=== PATIENT | male | born 1970 | race African-American/Black ===

== ENCOUNTER → 2021-02-09 | Outpatient (CLI) | payer OTHER ==
[~2021-02-09] MED LIST: ASPI-886 PO; CARV25TA2 PO; CRESTOR40 MG PO; EMPA25TA PO; HYDR100T24 PO; RAMI10CA53 PO; SPIR25TA5 PO
== END ==
LOC: LAB 09:45
PROVIDERS: ATTEND Internal Medicine Gastroenterology
DX: Z01.812 Encounter for preprocedural laboratory examination (principal); Z12.11 Encounter for screening for malignant neoplasm of colon; Z20.822 Contact with and (suspected) exposure to COVID-19
CPT/HCPCS: U0003

== ENCOUNTER → 2021-02-10 | Day surgery (SDC) | payer OTHER ==
[~2021-02-10] MED LIST changes: +IV RINGERS,LACTATED 1000ML 1,000 ML IV SCH; +LIDOCAINE 2% PF 5 ML VIAL. ONE; +PROPOFOL 10 MG/ML (20ML) VIAL. IV ONE
[2021-02-10 13:12] VITALS: BP 109/65
--- NOTE | 2021-02-10 19:13 | CONS ---
DATE OF CONSULTATION: 02/10/2021 REFERRING PHYSICIAN: Jae Perkins. REASON FOR CONSULTATION: Colorectal screening. HISTORY OF PRESENT ILLNESS: This is a 51-year-old male whose past medical history significant for diabetes, hypertension, coronary atherosclerosis, is seen for screening colon exam. Bowel habits are regular without diarrhea or constipation. Family history is negative for colon cancer. There has been no melena or hematochezia. Weight and appetite are stable. He is otherwise without additional complaints. PAST MEDICAL HISTORY: Diabetes, hypertension, coronary artery disease, history of gastroparesis. PAST SURGICAL HISTORY: Significant for bypass grafting, tonsillectomy. MEDICATIONS: Ramipril, carvedilol, aspirin, hydralazine, Jardiance, spironolactone. FAMILY HISTORY AND SOCIAL HISTORY: Noncontributory. REVIEW OF SYSTEMS: Per records. PHYSICAL EXAMINATION: GENERAL: Reveals a well-nourished, well-developed male who is alert, cooperative, in no acute distress. VITAL SIGNS: Temp 99, pulse 76, respiratory rate 18. LUNGS: Clear. CARDIOVASCULAR: Reveals an S1, S2 without S3, S4 or appreciable murmur. ABDOMEN: With a soft abdomen, normal bowel sounds, without appreciable hepatosplenomegaly. EXTREMITIES: Reveals no cyanosis, clubbing or edema. IMPRESSION: Colorectal screening is recommended at this time. Risks and benefits of procedure including risk of hemorrhage and perforation were discussed. The patient is willing to proceed at this time reveals a white count. CHERIE DUDLEY MD DR: EZEQUIEL/armond JOB#: [id number] / [id number]
== END | disposition home or self-care (01) ==
LOC: ENDOS 10:53
PROVIDERS: ATTEND Internal Medicine Gastroenterology
DX: Z12.11 Encounter for screening for malignant neoplasm of colon (principal); K64.0 First degree hemorrhoids; K63.89 Other specified diseases of intestine; E11.9 Type 2 diabetes mellitus without complications; I10 Essential (primary) hypertension; I25.10 Atherosclerotic heart disease of native coronary artery without angina pectoris; E78.00 Pure hypercholesterolemia, unspecified; Z79.82 Long term (current) use of aspirin; Z79.899 Other long term (current) drug therapy; Z98.890 Other specified postprocedural states
CPT/HCPCS: 45378; J2704